=== PATIENT | female | born 1980 | race African-American/Black ===

== ENCOUNTER 2016-05-22 17:41 | Emergency (ER) | payer OTHER ==
--- NOTE | 2016-05-22 17:53 | PDOC ---
Rapid Medical Evaluation Medical Evaluation: I have performed a brief in-person evaluation of this patient. The patient presents with a chief complaint of: 35 yo F presents with abd pain, N/V/D x1 day She is not sure if she may be . Pertinent physical exam findings: Mild LUQ/LLQ tenderness. Well appearing. I have ordered the following: UA/UCG The patient will proceed to the ED for further evaluation.
[2016-05-22 17:59] VITALS: BP 132/91; PULSE 80; TEMP 98.9; BMI 27.4
[2016-05-22] MEDS ORDERED: ONDANSETRON *ODT* 4 MG TABLET SL ONE (18:01)
[2016-05-22] MEDS ORDERED: ONDANSETRON *ODT* 4 MG TABLET ONE (18:28)
[2016-05-22 18:32] LABS: URINE APPEARANCE CLEAR; URINE BILIRUBIN NEGATIVE (NEGATIVE); URINE BLOOD NEGATIVE (NEGATIVE); URINE COLOR STRAW; URINE GLUCOSE (UA) NEGATIVE (NEGATIVE); URINE KETONE NEGATIVE (NEGATIVE); URINE LEUK ESTERASE NEGATIVE (NEGATIVE); URINE NITRITE NEGATIVE (NEGATIVE); URINE PROTEIN NEGATIVE (NEGATIVE); URINE UROBILINOGEN NEGATIVE E.U./dl (0.2-1.0)
--- NOTE | 2016-05-22 18:57 | PDOC ---
[id number] ABD PAIN Time Seen by Provider: 05/22/16 17:54 History Source: Patient Exam Limitations: No Limitations - History of Present Illness Travel History: No Initial Comments: 05/22/16 18:53 35 yr female with c/o nvd and left lower quadrant pain. pt states LMP 3 weeks ago. no fever, no chills , no back pain. Pt is ectopic right side last September. Pt has no vaginal discharge, or bleeding. Past History - Past Medical History Allergies/Adverse Reactions: Allergies Allergy/AdvReac Type Severity Reaction Status Date / Time No Known Allergies Allergy Verified 05/22/16 17:54 Home Medications: Ambulatory Orders NK [No Known Home Medication] 05/22/16 Asthma: No Cancer: No Cardiac Disorders: No Diabetes: No HTN: No Suicide Attempt (Hx): No Seizures: No Thyroid Disease: No - Surgical History Abdominal Surgery: Yes (LT FALLOPIAN TUBE REMOVED.) - Family Disease History Family Disease History: Diabetes: Father, Heart Disease: Mother - Immunization History Immunization Up to Date: Yes - Psycho/Social/Smoking Cessation Hx Anxiety: No Suicidal Ideation: No Smoking Status: Yes Smoking History: Former smoker Have you smoked in the past 12 months: No Number of Cigarettes Smoked Daily: 1 Cigars Per Day: 0 Information on smoking cessation initiated: Yes 'Breaking Loose' booklet given: 05/22/16 Hx Alcohol Use: No Drug/Substance Use Hx: No Substance Use Type: None Hx Substance Use Treatment: No Abd/GI Specific PMHX - Complaint Specific PMHX Colitis: No Diverticulitis: No Gall Bladder Disease: No GERD: No Hepatitis: No Irritable Bowel Synd (IBS): No Pancreatitis: No GI Ulcer Disease: No Review of Systems - Review of Systems Able to Perform ROS?: Yes Is the patient limited Estonian proficient: No Constitutional: No: Symptoms Reported HEENTM: No: Symptoms Reported Respiratory: No: Symptoms reported Cardiac (ROS): No: Symptoms Reported ABD/GI: Yes: Symptoms Reported, See HPI *Physical Exam - Vital Signs Last Vital Signs Temp Pulse Resp BP Pulse Ox 98.9 F 80 16 132/91 98 05/22/16 17:56 05/22/16 17:56 05/22/16 17:56 05/22/16 17:56 05/22/16 17:56 - Physical Exam General Appearance: Yes: Nourished, Appropriately Dressed HEENT: positive: EOMI, CHRISTINA, Normal ENT Inspection, TMs Normal, Pharynx Normal Neck: positive: Supple. negative: Tender Respiratory/Chest: positive: Lungs Clear, Normal Breath Sounds Cardiovascular: positive: Regular Rhythm, Regular Rate Gastrointestinal/Abdominal: positive: Normal Bowel Sounds, Tender (left lower quadrant ), Soft Musculoskeletal: positive: Normal Inspection Extremity: positive: Normal Inspection, Normal Range of Motion. negative: Normal Capillary Refill Integumentary: positive: Normal Color, Dry, Warm Neurologic: positive: Fully Oriented, Alert, Normal Mood/Affect, Normal Response , Motor Strength 07/19 ED Treatment Course - LABORATORY CBC & Chemistry Diagram: 05/22/16 19:00 05/22/16 19:00 - ADDITIONAL ORDERS Additional order review: Laboratory Results 05/22/16 05/22/16 18:20 18:20 Urine Color Straw Urine Appearance Clear Urine pH 7.0 Ur Specific [place] 1.010 Urine Protein Negative Urine Glucose (UA) Negative Urine Ketones Negative Urine Blood Negative Urine Nitrite Negative Urine Bilirubin Negative Urine Urobilinogen Negative Ur Leukocyte Esterase Negative Urine HCG, Qual Positive - RADIOLOGY Radiology Studies Ordered: Category Date Time Status TRANSVAGINAL US PREG [US] Stat Ultrasound 05/22/16 18:49 Ordered - Medications Given in the ED: ED Medications Discontinued Medications Generic Name Dose Route Start Last Admin Trade Name Markq PRN Reason Stop Dose Admin Ondansetron HCl 4 mg 05/22/16 18:01 05/22/16 18:30 Zofran Odt - SL 05/22/16 18:02 4 mg ONCE ONE Administration Medical Decision Making - Medical Decision Making 05/22/16 18:56 cc: left lower abd pain with nvd no urinary dysfunction, no vaginal discharge or bleeding unsure of status, last period was 05/04/16 pt has history of ectopic with rupture (pt believes the right side) September 2015. will r/o , ectopic, ovarian cyst 05/22/16 19:14 05/22/16 19:26 pt endorsed to Ronnell Ramos NP for further management in the main ER. Pt stable placed in bed 9A per charge nurse. *DC/Admit/Observation/Transfer Diagnosis at time of Disposition: Abdominal pain during , Left ovarian cyst - Discharge Dispostion Disposition: HOME Condition at time of disposition: Improved - Patient Instructions Printed Discharge Instructions: DI for Abdominal Pain -- Early Additional Instructions: FOLLOW UP WITH YOUR CYBER SECURITY MANAGER DISCUSSED. RETURN IF SYMPTOMS WORSEN OR ANY CONCERNS FOR FURTHER EVALUATION. Print Language: CZECH
[2016-05-22 19:07] LABS: MCH 26.8 pg (25.7-33.7); MCHC 33.3 g/dl (32.0-36.0); MEAN CELL VOLUME 80.5 fl (80-96); MEAN PLT VOLUME 9.4 fl (7.5-11.1); PLATELET COUNT 209 K/MM3 (134-434); RDW 14.7 % (11.6-15.6); WHITE BLOOD COUNT 6.9 K/mm3 (4.0-10.0)
[2016-05-22 19:29] LABS: ALBUMIN 3.5 g/dl (3.4-5.0); ANION GAP 7 (8-16); BILIRUBIN,TOTAL 0.3 mg/dL (0.2-1.0); CO2 27 mmol/L (21-32); CREATININE 0.9 mg/dL (0.55-1.02); GLUCOSE,RANDOM 95 mg/dL (74-106); SGOT/AST 9 U/L (15-37); SGPT/ALT 16 U/L (12-78); TOT PROT 7.6 g/dl (6.4-8.2)
[2016-05-22 19:45] LABS: ALK PHOS 49 U/L (45-117)
--- NOTE | 2016-05-22 20:19 | PDOC ---
History of Present Illness - General Chief Complaint: Pain Stated Complaint: ABD PAIN Time Seen by Provider: 05/22/16 17:54 History Source: Patient Exam Limitations: No Limitations - History of Present Illness Travel History: No Initial Comments: 05/22/16 20:14 35yo Female patient presents to ED c/o LLQ pain which began 2 days ago. Patient states experiencing nausea/vomiting/dizziness and chills. Patient was evaluated in fast track for abd pain and elevated to ED status due to positive . Patient also reports hx: Ectopic preg September/2015. She states, "It is weird that I am , when I had my period last month." LNMP: 05/04/2016. Patient denies any other complaints at this time. Quality: reports: severe Abdominal Pain Onset Location: reports: LLQ Pain Radiation: reports: no radiation Activities at Onset: reports: none Aggravating Factors: improves with: None Alleviating Factors: improves with: None Past History - Travel Traveled outside of the country in the last 30 days: No Close contact w/someone who was outside of country & ill: No - Past Medical History Allergies/Adverse Reactions: Allergies Allergy/AdvReac Type Severity Reaction Status Date / Time No Known Allergies Allergy Verified 05/22/16 17:54 Home Medications: Ambulatory Orders NK [No Known Home Medication] 05/22/16 Asthma: No Cancer: No Cardiac Disorders: No Diabetes: No HTN: No Suicide Attempt (Hx): No Seizures: No Thyroid Disease: No - Surgical History Abdominal Surgery: Yes (LT FALLOPIAN TUBE REMOVED.) - Family Disease History Family Disease History: Diabetes: Father, Heart Disease: Mother - Immunization History Immunization Up to Date: Yes - Psycho/Social/Smoking Cessation Hx Anxiety: No Suicidal Ideation: No Smoking Status: Yes Smoking History: Former smoker Have you smoked in the past 12 months: No Number of Cigarettes Smoked Daily: 1 Cigars Per Day: 0 Information on smoking cessation initiated: Yes 'Breaking Loose' booklet given: 05/22/16 Hx Alcohol Use: No Drug/Substance Use Hx: No Substance Use Type: None Hx Substance Use Treatment: No Abd/GI Specific PMHX - Complaint Specific PMHX Colitis: No Diverticulitis: No Gall Bladder Disease: No GERD: No Hepatitis: No Irritable Bowel Synd (IBS): No Pancreatitis: No GI Ulcer Disease: No Review of Systems - Review of Systems Able to Perform ROS?: Yes Is the patient limited Kyrgyz proficient: No Constitutional: Yes: Chills. No: Fever Respiratory: No: Cough, Shortness of Breath, Stridor Cardiac (ROS): No: Chest Pain ABD/GI: Yes: Diarrhea, Nausea, Vomiting, Other (Abdominal Pain-LLQ). No: Constipated, Poor Appetite, Poor Fluid Intake : No: Burning, Dysuria, Discharge, Frequency, Flank Pain, Hematuria, Pain, Urgency Musculoskeletal: No: Back Pain Integumentary: No: Bruising, Erythema, Rash, Sweating Neurological: Yes: Dizziness. No: Headache, Numbness, Paresthesia, Seizure, Tingling, Tremors, Weakness Psychiatric: No: Anxiety, Depression All Other Systems: Reviewed and Negative *Physical Exam - Vital Signs Last Vital Signs Temp Pulse Resp BP Pulse Ox 98.9 F 80 16 132/91 98 05/22/16 17:56 05/22/16 17:56 05/22/16 17:56 05/22/16 17:56 05/22/16 17:56 - Physical Exam General Appearance: Yes: Nourished, Appropriately Dressed, Moderate Distress. No: Apparent Distress Neck: positive: Trachea midline, Normal Thyroid, Supple. negative: Stridor, Lymphadenopathy (R), Lymphadenopathy (L) Respiratory/Chest: positive: Lungs Clear, Normal Breath Sounds. negative: Respiratory Distress, Accessory Muscle Use, Labored Respiration Cardiovascular: positive: Regular Rhythm, Regular Rate Gastrointestinal/Abdominal: positive: Normal Bowel Sounds, Soft, Tenderness ( LLQ Tenderness on deep palpation. + Rebound with voluntary guarding.) Musculoskeletal: positive: Normal Inspection. negative: CVA Tenderness Extremity: positive: Normal Capillary Refill, Normal Inspection, Normal Range of Motion Integumentary: positive: Normal Color, Dry, Warm Neurologic: positive: electric meter reader II-XII NML intact, Fully Oriented, Alert, Normal Mood/ Affect, Normal Response, Motor Strength 5/5 ED Treatment Course - LABORATORY CBC & Chemistry Diagram: 05/22/16 19:00 05/22/16 19:00 - ADDITIONAL ORDERS Additional order review: Laboratory Results 05/22/16 05/22/16 05/22/16 19:00 18:20 18:20 Sodium 137 Potassium 4.1 Chloride 103 Carbon Dioxide 27 Anion Gap 7 L BUN 11 D Creatinine 0.9 Creat Clearance w eGFR > 60 Random Glucose 95 Calcium 9.0 Total Bilirubin 0.3 AST 9 L D ALT 16 D Alkaline Phosphatase 49 D Total Protein 7.6 Albumin 3.5 D Beta HCG, Quant 14183.8 Urine Color Straw Urine Appearance Clear Urine pH 7.0 Ur Specific [place] 1.010 Urine Protein Negative Urine Glucose (UA) Negative Urine Ketones Negative Urine Blood Negative Urine Nitrite Negative Urine Bilirubin Negative Urine Urobilinogen Negative Ur Leukocyte Esterase Negative Urine HCG, Qual Positive 05/22/16 19:00 RBC 4.67 D MCV 80.5 MCHC 33.3 RDW 14.7 MPV 9.4 - Medications Given in the ED: ED Medications Discontinued Medications Generic Name Dose Route Start Last Admin Trade Name Freq PRN Reason Stop Dose Admin Ondansetron HCl 4 mg 05/22/16 18:01 05/22/16 18:30 Zofran Odt - SL 05/22/16 18:02 4 mg ONCE ONE Administration *DC/Admit/Observation/Transfer Diagnosis at time of Disposition: Cyst of left ovary Abdominal pain during Qualifiers: Trimester: first trimester Qualified Code(s): O26.891 - Other specified related conditions, first trimester; R10.9 - Unspecified abdominal pain - Discharge Dispostion Disposition: HOME Condition at time of disposition: Improved Admit: No - Patient Instructions Additional Instructions: FOLLOW UP WITH YOUR PATIENT PORTAL CONCIERGE DISCUSSED. RETURN IF SYMPTOMS WORSEN OR ANY CONCERNS FOR FURTHER EVALUATION. Print Language: AZERI
--- NOTE | 2016-05-22 20:43 | PDOC ---
*Physical Exam - Vital Signs Last Vital Signs Temp Pulse Resp BP Pulse Ox 98.9 F 80 16 132/91 98 05/22/16 17:56 05/22/16 17:56 05/22/16 17:56 05/22/16 17:56 05/22/16 17:56 ED Treatment Course - LABORATORY CBC & Chemistry Diagram: 05/22/16 19:00 05/22/16 19:00 - ADDITIONAL ORDERS Additional order review: Laboratory Results 05/22/16 05/22/16 05/22/16 19:00 19:00 18:20 Sodium 137 Potassium 4.1 Chloride 103 Carbon Dioxide 27 Anion Gap 7 L BUN 11 D Creatinine 0.9 Creat Clearance w eGFR > 60 Random Glucose 95 Calcium 9.0 Total Bilirubin 0.3 AST 9 L D ALT 16 D Alkaline Phosphatase 49 D Total Protein 7.6 Albumin 3.5 D Beta HCG, Quant 19959.8 Urine Color Urine Appearance Urine pH Ur Specific [place] Urine Protein Urine Glucose (UA) Urine Ketones Urine Blood Urine Nitrite Urine Bilirubin Urine Urobilinogen Ur Leukocyte Esterase Urine HCG, Qual Positive Blood Type A POSITIVE Antibody Screen Negative 05/22/16 18:20 Sodium Potassium Chloride Carbon Dioxide Anion Gap BUN Creatinine Creat Clearance w eGFR Random Glucose Calcium Total Bilirubin AST ALT Alkaline Phosphatase Total Protein Albumin Beta HCG, Quant Urine Color Straw Urine Appearance Clear Urine pH 7.0 Ur Specific [place] 1.010 Urine Protein Negative Urine Glucose (UA) Negative Urine Ketones Negative Urine Blood Negative Urine Nitrite Negative Urine Bilirubin Negative Urine Urobilinogen Negative Ur Leukocyte Esterase Negative Urine HCG, Qual Blood Type Antibody Screen 05/22/16 19:00 RBC 4.67 D MCV 80.5 MCHC 33.3 RDW 14.7 MPV 9.4 - Medications Given in the ED: ED Medications Discontinued Medications Generic Name Dose Route Start Last Admin Trade Name Freq PRN Reason Stop Dose Admin Ondansetron HCl 4 mg 05/22/16 18:01 05/22/16 18:30 Zofran Odt - SL 05/22/16 18:02 4 mg ONCE ONE Administration Medical Decision Making - Medical Decision Making 05/22/16 20:43 agree with care from SACHI Ramos *DC/Admit/Observation/Transfer Diagnosis at time of Disposition: Abdominal pain during , Left ovarian cyst - Discharge Dispostion Disposition: HOME Condition at time of disposition: Improved - Patient Instructions Printed Discharge Instructions: DI for Abdominal Pain -- Early Additional Instructions: FOLLOW UP WITH YOUR AGRICULTURAL CROP FARM MANAGER DISCUSSED. RETURN IF SYMPTOMS WORSEN OR ANY CONCERNS FOR FURTHER EVALUATION. Print Language: FAROESE
== END 2016-05-22 22:02 | disposition home or self-care (01) ==
LOC: JERFT 17:41 → JER 17:41
DX: O26.891 Other specified pregnancy related conditions, first trimester (principal); N83.202 Unspecified ovarian cyst, left side; R10.9 Unspecified abdominal pain; Z87.891 Personal history of nicotine dependence; Z3A.01 Less than 8 weeks gestation of pregnancy
CPT/HCPCS: 36415; 76817-TC; 80053; 81003; 84702; 84703; 85027; 86850; 86900; 86901; 99281-25

== ENCOUNTER 2017-04-04 09:16 | Emergency (ER) | payer OTHER ==
[2017-04-04 09:49] VITALS: TEMP 97.9; BMI 27.9
[2017-04-04 10:11] VITALS: BP 128/89; PULSE 70
--- NOTE | 2017-04-04 10:11 | PDOC ---
History of Present Illness - General Chief Complaint: Chest Pain Stated Complaint: CHEST PAIN Time Seen by Provider: 04/04/17 09:44 History Source: Patient - History of Present Illness Presenting Symptoms: Chest Pain Timing/Duration: reports: intermittent Chest Pain Radiation: reports: no radiation Past History - Past Medical History Allergies/Adverse Reactions: Allergies Allergy/AdvReac Type Severity Reaction Status Date / Time No Known Allergies Allergy Verified 04/04/17 09:43 Home Medications: Ambulatory Orders NK [No Known Home Medication] 05/22/16 Asthma: No Cancer: No Cardiac Disorders: No COPD: No DVT: Yes Diabetes: No HTN: Yes Seizures: No Thyroid Disease: No - Surgical History Abdominal Surgery: Yes (LT FALLOPIAN TUBE REMOVED.) - Family Disease History Family Disease History: Diabetes: Father, Heart Disease: Mother - Immunization History Immunization Up to Date: Yes - Suicide/Smoking/Psychosocial Hx Smoking Status: Yes Smoking History: Current some day smoker Have you smoked in the past 12 months: Yes Number of Cigarettes Smoked Daily: 2 Cigars Per Day: 0 Information on smoking cessation initiated: No 'Breaking Loose' booklet given: 05/22/16 Hx Alcohol Use: No Drug/Substance Use Hx: No Substance Use Type: None Hx Substance Use Treatment: No Cardiac Specific PMH - Complaint Specific PMHX GERD: No Review of Systems - Review of Systems Constitutional: No: Chills, Fever, Unexplained wgt Loss Respiratory: No: Cough, Shortness of Breath Cardiac (ROS): Yes: Chest Pain. No: Lightheadedness, Palpitations, Syncope Psychiatric: No: Anxiety, Depression *Physical Exam - Vital Signs Last Vital Signs Temp Pulse Resp BP Pulse Ox 97.9 F 71 18 133/102 99 04/04/17 09:39 04/04/17 09:39 04/04/17 09:39 04/04/17 09:39 04/04/17 09:39 - Physical Exam Comments: 04/04/17 10:12 Sitting on stretcher and using her laptop General Appearance: Yes: Appropriately Dressed. No: Apparent Distress HEENT: positive: Normal Voice Neck: positive: Supple. negative: Lymphadenopathy (R), Lymphadenopathy (L) Respiratory/Chest: positive: Lungs Clear, Normal Breath Sounds. negative: Respiratory Distress Cardiovascular: positive: Regular Rate, S1, S2 Gastrointestinal/Abdominal: positive: Soft. negative: Tender Extremity: positive: Normal Inspection Integumentary: positive: Dry, Warm Neurologic: positive: Fully Oriented, Alert, Normal Mood/Affect Heart Score/ECG Review - ECG Intrepretation Comment:: 04/04/17 10:18 Twelve-lead EKG was performed and reviewed by me. There is normal sinus rhythm with a normal rate. The axis is normal. The intervals are normal. There are no ST or T wave abnormalities. Impression: Normal twelve-lead EKG Medical Decision Making - Medical Decision Making 04/04/17 10:04 36-year-old female, history of provoked DVT during several years ago, chest pain, here with her usual chest pain. Patient states for over a year she' s had left-sided chest pain, mostly non-radiating, sharp, lasts for minutes or longer at times w/ no exacerbating or alleviating factors. Patient here because pain worsened over a week ago. No sob, palpitations, diaphoresis, nausea, vomiting, dizziness, fever or chills. Denies anxiety/depression. No illicit drug use per pt. No sig fmhx. For unclear reasons, has not been evaluated by her PMD Patient states she was seen at [facility] several days ago and had blood work done revealing elevated d-dimer and had CTA, which was normal. Reason for coming in today unclear. See exam Chronic CP s/p neg CTA for elevated ddimer last week at [facility] Well kayleen and stable w/ unremarkable exam EKG normal today No indication for further w/u today as d/w Dr Mg -will dc w/ pmd f/u *DC/Admit/Observation/Transfer Diagnosis at time of Disposition: Chronic chest pain - Discharge Dispostion Disposition: HOME Condition at time of disposition: Good - Referrals - Patient Instructions Printed Discharge Instructions: DI for Atypical Chest Pain Additional Instructions: The cause of your chest pain is unclear at this time as your vitals and EKG were normal. In addition, the CAT scan you have done at [facility] essentially ruled out any acute lung pathology such as a blood clot. Chronic pain is best assessed by your primary care physician and you should follow-up - Post Discharge Activity
--- NOTE | 2017-04-04 13:21 | EKG ---
Test Reason : Blood Pressure : / mmHG Vent. Rate : 070 BPM Atrial Rate : 070 BPM P-R Int : 172 ms QRS Dur : 086 ms QT Int : 400 ms P-R-T Axes : 044 040 030 degrees QTc Int : 432 ms NORMAL SINUS RHYTHM NORMAL ECG NO PREVIOUS ECGS AVAILABLE Confirmed by MD OSIEL, NOAH ([id number]) on 04/04/2017 1:20:42 PM Referred By: Confirmed By:NOAH CARTAGENA MD
== END 2017-04-04 10:30 | disposition home or self-care (01) ==
LOC: JER 09:16
DX: R07.89 Other chest pain (principal); I10 Essential (primary) hypertension; Z86.718 Personal history of other venous thrombosis and embolism; F17.210 Nicotine dependence, cigarettes, uncomplicated
CPT/HCPCS: 93005; 93010; 99283-25

== ENCOUNTER 2018-01-29 16:27 | Emergency (ER) | payer OTHER ==
[2018-01-29 16:33] VITALS: BP 147/98; PULSE 93; TEMP 98.2; BMI 28.9
--- NOTE | 2018-01-29 17:16 | PDOC ---
History of Present Illness - General Chief Complaint: Injury Stated Complaint: FALL Time Seen by Provider: 01/29/18 16:45 History Source: Patient Exam Limitations: No Limitations - History of Present Illness Initial Comments: 01/29/18 17:23 HISTORY OF PRESENT ILLNESS: 37-year-old woman denies medical history was presents emergency department for evaluation of right upper back and shoulder pain status post slip and fall on ice. Patient states she was walking with a colleague holding each other when one slipped causing both limited to fall to the ground. Her colleague is being evaluated in the emergency department presently. Patient with right shoulder pain and right upper back pain. She denies any head trauma or loss of consciousness. Patient denies any shortness of breath or chest pain. No recent travel or sick contacts. PAST MEDICAL HISTORY: Denies past medical history SURGICAL HISTORY: Denies ALLERGIES: No known drug allergies REVIEW OF SYSTEMS General/Constitutional: Denies fever or chills. Denies weakness, weight change. HEENT: Denies change in vision. Denies ear pain or discharge. Denies sore throat. Cardiovascular: Denies chest pain or shortness of breath. Respiratory: Denies cough, wheezing, or hemoptysis. Gastrointestinal: Denies nausea, vomiting, diarrhea or constipation. Denies rectal bleeding. Genitourinary: Denies dysuria, frequency, or change in urination. Musculoskeletal: Right shoulder and posterior rib pain. Denies neck or back pain. Skin and breasts: Denies rash or easy bruising. Neurologic: Denies headache, vertigo, loss of consciousness, or loss of sensation. Psychiatric: Denies depression or anxiety. Endocrine: Denies increased thirst. Denies abnormal weight change. Hematologic/Lymphatic: Denies anemia, easy bleeding, or history of blood clots. Allergic/Immunologic: Denies hives or skin allergy. Denies latex allergy. PHYSICAL EXAM General Appearance: Well-appearing, appropriately dressed. No apparent distress , no intoxication. HEENT: EOMI, PERRLA, normal ENT inspection, normal voice, TMs normal, pharynx normal. No conjunctival pallor. No photophobia, scleral icterus. Neck: Supple. Trachea midline. No tenderness, rigidity, carotid bruit, stridor , lymphadenopathy, or thyromegaly. Respiratory/Chest: Lungs CTAB. No shortness of breath, chest tenderness, respiratory distress, accessory muscle use. No crackles, rales, rhonchi, stridor , wheezing, dullness Cardiovascular: RRR. S1, S2. No JVD, murmur, bradycardia, tachycardia. Vascular Pulses: Dorsalis-Pedis (R): 2+, Dorsalis-Pedis (L): 2+ Gastrointestinal/Abdominal: Normal bowel sounds. Abdomen soft, non-distended. No tenderness or rebound tenderness. No organomegaly, pulsatile mass, guarding, hernia, hepatomegaly, splenomegaly. Lymphatic: No adenopathy, tenderness. Musculoskeletal/Extremities: Normal inspection. Tenderness to the right trapezius from origination point at the cervical spine to insertion point along the thoracic spine. No bony tenderness to palpation. Able to perform passive range of motion exercises without difficulty. No bony tenderness or deformity noted to palpation of the clavicle or anterior shoulder. Integumentary: Appropriate color, dry, warm. No cyanosis, erythema, jaundice or rash Neurologic: design lead II-XII intact. Fully oriented, alert. Appropriate mood/affect. Motor strength 5/5. No appreciable EOM palsy, facial droop or sensory deficit. Past History - Past Medical History Allergies/Adverse Reactions: Allergies Allergy/AdvReac Type Severity Reaction Status Date / Time No Known Allergies Allergy Verified 01/29/18 16:30 Home Medications: Ambulatory Orders Methocarbamol [Robaxin -] 1,500 mg PO Q8H PRN #30 tablet 01/29/18 Asthma: No Cancer: No Cardiac Disorders: No COPD: No DVT: Yes Diabetes: No HTN: Yes Seizures: No Thyroid Disease: No - Surgical History Abdominal Surgery: Yes (LT FALLOPIAN TUBE REMOVED.) - Family Disease History Family Disease History: Diabetes: Father, Heart Disease: Mother - Immunization History Immunization Up to Date: Yes - Suicide/Smoking/Psychosocial Hx Smoking Status: Yes Smoking History: Current some day smoker Have you smoked in the past 12 months: Yes Number of Cigarettes Smoked Daily: 3 Cigars Per Day: 0 Information on smoking cessation initiated: No 'Breaking Loose' booklet given: 05/22/16 Hx Alcohol Use: No Drug/Substance Use Hx: No Substance Use Type: None Hx Substance Use Treatment: No *Physical Exam - Vital Signs Last Vital Signs Temp Pulse Resp BP Pulse Ox 98.2 F 93 H 16 147/98 100 01/29/18 16:30 01/29/18 16:30 01/29/18 16:30 01/29/18 16:30 01/29/18 16:30 Medical Decision Making - Medical Decision Making 01/29/18 18:01 A/P: 37-year-old woman with right shoulder and upper back pain status post slip and fall Tenderness to the right trapezius from origination point at the cervical spine to insertion point along the thoracic spine. No bony tenderness to palpation. Able to perform passive range of motion exercises without difficulty No bony tenderness or deformity noted to palpation of the clavicle or anterior shoulder. Urine testing, x-rays, analgesic, reassess 01/29/18 18:35 X-ray of the right shoulder as read by me: No acute fractures or dislocations noted. X-ray of the ribs as read by me: no fractures. Mild scoliosis present. Cardiac silhouette is within normal limits. No focal of leuk trase or consolidations present. I'll discharge the patient home with prescription for Robaxin. *DC/Admit/Observation/Transfer Diagnosis at time of Disposition: Acute pain of right shoulder, Upper back pain on right side - Discharge Dispostion Disposition: HOME Condition at time of disposition: Stable Decision to Admit order: No - Prescriptions Prescriptions: Methocarbamol [Robaxin -] 1,500 mg PO Q8H PRN #30 tablet PRN Reason: Back Pain - Referrals Referrals: Marcellus Carrera MD [Primary Care Provider] - - Patient Instructions Additional Instructions: Rest, no heavy lifting or exercise until pain is resolved Hot soaks to neck and low back as often as possible/hot showers or Jacuzzis No massage or therapy until spasm is gone Continue ibuprofen 2-200 mg tablets every 6 hours for the next 3 days then as needed for pain and swelling Robaxin 1500mg every 8 hours as needed for spasm If not significant improvement within 24 hours with medication and rest regime, followup with private physician for change in medications and /or therapy. - Post Discharge Activity
[2018-01-29] MEDS ORDERED: KETOROLAC TROMETHAMINE 30 MG/1 ML VIAL IM ONE (18:01)
[2018-01-29] MEDS ORDERED: CYCLOBENZAPRINE HCL 10 MG TABLET (FP) PO ONE (18:01)
[2018-01-29] MEDS ORDERED: CYCLOBENZAPRINE HCL 10 MG TABLET (FP) ONE (18:23)
[2018-01-29] MEDS ORDERED: KETOROLAC TROMETHAMINE 30 MG/1 ML VIAL ONE (18:24)
== END 2018-01-29 18:39 | disposition home or self-care (01) ==
LOC: JERFT 16:27
PROC: 3E0233Z Introduction of Anti-inflammatory into Muscle, Percutaneous Approach (ICD-10-PCS; principal; 2018-01-29)
DX: M54.6 Pain in thoracic spine (principal); W00.0XXA Fall on same level due to ice and snow, initial encounter; Y93.01 Activity, walking, marching and hiking; Y92.480 Sidewalk as the place of occurrence of the external cause; Y99.8 Other external cause status
CPT/HCPCS: 71101-TC-RT-FY; 73030-TC-RT-FY; 84703; 99281-25

== ENCOUNTER 2018-05-26 19:03 | Emergency (ER) | payer OTHER ==
--- NOTE | 2018-05-26 19:44 | PDOC ---
Rapid Medical Evaluation Time Seen by Provider: 05/26/18 19:41 Medical Evaluation: Allergies Allergy/AdvReac Type Severity Reaction Status Date / Time No Known Allergies Allergy Verified 01/29/18 16:30 05/26/18 19:41 I have performed a brief in-person evaluation of this patient. The patient presents with a chief complaint of: chest pain radiating to throat x 2 hours Pertinent physical exam findings: Lungs CTAB. RRR. No m/r/g. I have ordered the following: cardiac w/u The patient will proceed to the ED for further evaluation. Discharge Disposition - Diagnosis Chest pain - Referrals - Patient Instructions - Post Discharge Activity
[2018-05-26 19:45] VITALS: BP 145/101; PULSE 86; TEMP 98; BMI 29.6
[2018-05-26] MEDS ORDERED: ASPIRIN 81 MG CHEWABLE TABLETS PO ONE (19:45)
--- NOTE | 2018-05-27 11:06 | EKG ---
Test Reason : Blood Pressure : / mmHG Vent. Rate : 086 BPM Atrial Rate : 086 BPM P-R Int : 156 ms QRS Dur : 082 ms QT Int : 366 ms P-R-T Axes : 058 013 020 degrees QTc Int : 437 ms POOR DATA QUALITY, INTERPRETATION MAY BE ADVERSELY AFFECTED NORMAL SINUS RHYTHM NORMAL ECG WHEN COMPARED WITH ECG OF 04-APR-2017 09:24, NO SIGNIFICANT CHANGE WAS FOUND Confirmed by SKINNY YATES, LISA ([id number]) on 05/27/2018 11:06:19 AM Referred By: Confirmed By:LISA BABB MD
== END 2018-05-26 20:53 | disposition left against medical advice (07) ==
LOC: JER 19:03
DX: R07.9 Chest pain, unspecified (principal)
CPT/HCPCS: 93005; 93010; 99281-25

== ENCOUNTER 2022-03-06 22:31 | Emergency (ER) | payer OTHER ==
[2022-03-06 22:42] VITALS: BP 135/80; PULSE 78; RESP 19; TEMP 98.7; BMI 32.5
[2022-03-07 01:33] LABS: BASO % 0.6 % (0-2.0); EOS % 2.2 % (0-4.5); HEMATOCRIT 38.6 % (32.4-45.2); HEMOGLOBIN 12.5 GM/dL (10.7-15.3); LYMPH % 47.2 % (8-40); MCH 26.4 pg (25.7-33.7); MCHC 32.3 g/dl (32.0-36.0); MEAN CELL VOLUME 81.8 fl (80-96); MEAN PLT VOLUME 9.4 fl (7.5-11.1); MONO % 7.5 % (3.8-10.2); NEUT % 42.5 % (42.8-82.8); PLATELET COUNT 229 10^3/uL (134-434); RBC 4.72 M/mm3 (3.60-5.2); RDW 15.3 % (11.6-15.6); WHITE BLOOD COUNT 5.4 K/mm3 (4.0-10.0)
[2022-03-07 01:40] LABS: INR 1.01 (0.83-1.09); PROTHROMBIN TIME (PATIENT) 11.6 SEC (9.7-13.0)
[2022-03-07 01:42] LABS: ACTIVATED PTT 30.7 SECONDS (25.2-36.5)
[2022-03-07 01:55] LABS: ALBUMIN 3.7 g/dl (3.4-5.0); BLOOD UREA NITROGEN 13.9 mg/dL (7-18)
[2022-03-07 01:59] LABS: BILIRUBIN,TOTAL 0.2 mg/dL (0.2-1); TOT PROT 7.4 g/dl (6.4-8.2)
[2022-03-07] MEDS ORDERED: ACETAMINOPHEN 1000 MG/100 ML BAG IVPB ONE (02:28)
[2022-03-07] MEDS ORDERED: ACETAMINOPHEN INJECTION 100 ML IVPB ONE (03:16)
== END 2022-03-07 04:20 | disposition home or self-care (01) ==
LOC: JER 22:31
PROC: 3E033GC Introduction of Other Therapeutic Substance into Peripheral Vein, Percutaneous Approach (ICD-10-PCS; principal; 2022-03-06)
DX: U07.1 COVID-19 (principal); R07.9 Chest pain, unspecified
CPT/HCPCS: 0241U-QW; 36415; 71046-TC-FY; 71275-TC; 80053; 82550; 83605; 83690; 83735; 84484; 84703; 85025; 85610; 85730; 93005; 93010; 99285-25

== ENCOUNTER 2024-11-16 11:01 | Emergency (ER) | payer OTHER ==
[2024-11-16 11:14] VITALS: BP 125/75; PULSE 77; RESP 16; TEMP 98.5; BMI 34.1
== END 2024-11-16 12:32 | disposition home or self-care (01) ==
LOC: JERFT 11:01
DX: M79.642 Pain in left hand (principal)
CPT/HCPCS: 73130-TC-LT-FY; 99283-25